=== PATIENT | male | born 1980 | race Caucasian/White ===

== ENCOUNTER 2017-01-26 18:57 | Emergency (ER) | payer OTHER ==
[~2017-01-26] VITALS: Ht 162.6 cm; Wt 90.9 kg
[2017-01-26 19:09] VITALS: BP 160/115; PULSE 102; RESP 17; O2SAT 96
--- NOTE | 2017-01-26 20:11 | ED.REPORT ---
HPI-Dental/Mouth Prob Date of Service January 26, 2017 ED Provider: Andres Pope MD Patient is a 36 year old male who presents to the ED complaining of left eye tooth pain onset two weeks ago. Associated symptoms include left facial swelling since last night. The patient reports that he has not seen a dentist yet. Nursing Notes Stated Complaint: INFECTED TOOTH,SWOLLEN FACE Chief Complaint: Dental Nursing Notes Reviewed: Yes Allergies: Uncoded Allergies: SULFA (Allergy, Mild, 01/26/17) General Time Seen by MD: 20:11 Chief Complaint Tooth pain Hx Obtained From: Patient Arrived By: Walk-in Onset Occurred: More than a week ago... (2 weeks) Symptom Duration: Since onset Location: : Tooth upper L molar Similar Sx Previous: No Past Medical History Past Medical History none reported Smoking History Unknown if Ever Smoker Social History Other Social History: Good social support, Ambulatory Status Independent Review of Systems Review of Systems Note: facial swelling Constitutional: Denies: Fever Ears / Nose / Throat: Reports: Toothache, Denies: Ear drainage left, Ear drainage right Respiratory: Denies: Non-productive cough, Shortness of breath GI: Denies: Abdominal pain Complete sys rev & neg: except as marked. Physical Exam Initial Vital Signs Vital Signs (First) Date Time Temp Pulse Resp B/P Pulse Ox O2 Delivery O2 Flow Rate FiO2 01/26/17 19:09 36.8 102 17 160/115 96 Room Air Initial VS: Reviewed ENT: Atraumatic, Airway patent, Mucous membranes moist buccal cellulitis no evidence of oral abscess no drooling Neck: Atraumatic, Supple, Full range of motion General/Constitutional: Awake, Alert, No acute distress Head / Eyes: Atraumatic, Normocephalic, PERRL, EOMI left mild facial swelling Respiratory / Chest: Atraumatic, Breath sounds NL, Breath sounds = bilat, No respiratory distress, No stridor Cardiovascular: Heart rate NL, Regular rhythm, Heart sounds NL Neurologic: Oriented X3, Speech NL, No motor deficits, No sensory deficits Abdomen: Atraumatic, Soft, Non-tender Back: Atraumatic, Full range of motion Upper Extremity / MS: Atraumatic, Full range of motion Lower Extremity / Pelvis / MS: Atraumatic, Full range of motion Skin: Atraumatic, Color NL, No rash, Warm, Dry Psychiatric: Affect NL, Mood NL Re-Eval/Medical Decision Re-Evaluation/Progress : Time of Eval: 20:11 Patient Status: Condition improved Re-Evaluation/Progress Note: Discussed plan for treatment and discharge during initial interview. The patient understands and agrees to the plan for discharge. All questions were addressed. Counseled Regarding: Diagnosis, Need for follow-up, When/why to return to ED Discharge & Departure Primary Impression: Cellulitis of buccal space of mouth Additional Impression: Toothache Disposition: Home Discharge Condition All VS Reviewed: Yes Condition: Stable Patient Instructions: Dental Abscess (ED) Additional Instructions: Augmentin twice daily for 7 days. This is an antibiotic. Take 1-2 Percocet every 6 hours as needed for pain. Do not drive or drink alcohol or consume acetaminophen for mild taking the Percocet.. Follow up with a dentist next week for further inspection. If you develop an abscess you will have to come back to the emergency department to have it drained. Please return to the emergency department if you develop any new or worsening symptoms before you see your dentist. call your dentist Saturday morning for follow-up. Luz Maria Attestation Portions of this note were transcribed by Lois Resendez. I, Dr. Pope personally performed the history, physical exam and medical decision-making; I reviewed and confirmed the accuracy of the information in the transcribed note. Signed by:Luz Maria Pierre, 01/26/17 and 2111 Andres Pope DO January 26, 2017 20:11 Gracia Resendez January 26, 2017 21:00
[2017-01-26] MEDS ORDERED: _oxyCODONE/APAP 5-325 mg Tablet PO PRN (21:00)
[2017-01-26] MEDS ORDERED: Ampicillin-Sulbactam Inj 3,000 MG in 0.9% Sodium Chloride 100 ML IV ONE (21:00)
[2017-01-26] MEDS ORDERED: Dexamethasone Inj 20 MG in 0.9% Sodium Chloride-Pha MIX 50 ML IV ONE (21:00)
[2017-01-26 23:30] VITALS: BP 150/99; PULSE 105; RESP 18; O2SAT 96
[2017-01-27] MEDS ORDERED: Sodium Chloride LOK Flush 10 mL Syringe IVFLUSH SCH (00:30)
== END 2017-01-26 22:55 | disposition home or self-care (01) ==
LOC: SED 18:57
DX: K12.2 Cellulitis and abscess of mouth (principal); K08.89 Other specified disorders of teeth and supporting structures
CPT/HCPCS: 96365; 96375; 99284; J0295; J1100